=== PATIENT | female | born 1980 | race African-American/Black ===

== ENCOUNTER 2017-06-17 17:41 | Emergency (ER) | payer SELFPAY ==
[~2017-06-17] VITALS: Ht 170.2 cm; Wt 70.3 kg
[~2017-06-17 17:41] MED LIST: ACET500C4 PO; CALC500T30 PO; LEVO25TA55 PO
[2017-06-17 18:55] VITALS: BP 113/61
[2017-06-17] MEDS: SIMETHICONE 80 MG TAB.CHEW PO STA ×3 (19:05→19:25)
--- NOTE | 2017-06-17 19:13 | PHYS DOC ---
Past Medical History Past Medical History: Hypotension Additional Past Medical Histor: thyroid mass Past Surgical History: Other Additional Past Surgical Histo: thyroid/thyroid mass removed Alcohol Use: None Drug Use: None Adult General Chief Complaint Chief Complaint: OTHER COMPLAINTS HPI HPI Patient is a 37 year old female with history of hypertension who presents today complaining of abdominal pain and dysuria. Patient states she's had moderate left lower quadrant abdominal pain that began this morning at 12 AM. She states she went to [facility] at 5 AM by ambulance. She states she was not seen until 1 PM today. She states they did testing which showed she has gas in her stomach as well as urinary tract infection. She states she was discharged with Nitrofurantoin. Patient denies any nausea vomiting. Denies any fever. Denies any chance she is . She is tearful asking for pain relief. Review of Systems Review of Systems Constitutional: Denies fever or chills [] Eyes: Denies change in visual acuity, redness, or eye pain [] HENT: Denies nasal congestion or sore throat [] Respiratory: Denies cough or shortness of breath [] Cardiovascular: No additional information not addressed in HPI [] GI: Left lower quadrant abdominal pain, denies nausea, vomiting, bloody stools or diarrhea [] :dysuria denies hematuria [] Musculoskeletal: Denies back pain or joint pain [] Integument: Denies rash or skin lesions [] Neurologic: Denies headache, focal weakness or sensory changes [] Current Medications Current Medications Current Medications Medications (Trade) Dose Ordered Sig/Sarah Start Time Stop Time Status Last Admin Dose Admin Ceftriaxone Sodium (Rocephin Im) 1 gm 1X ONCE 06/17/17 19:15 06/17/17 19:16 Lidocaine HCl (Xylocaine-Mpf 1% Vial) 2 ml 1X ONCE 06/17/17 19:15 06/17/17 19:16 Magnesium Citrate (Citroma) 296 ml 1X ONCE 06/17/17 19:15 06/17/17 19:16 Simethicone (Gas-X) 80 mg 1X STAT 06/17/17 19:05 06/17/17 19:06 DC Allergies Allergies Allergies Coded Allergies Type Severity Reaction Last Updated Verified acetaminophen Allergy Intermediate Itching 04/07/14 Yes hydrocodone Allergy Intermediate Itching 04/07/14 Yes latex Allergy Intermediate itching 11/02/14 No morphine Allergy Intermediate "Makes me jittery and feel short of breath." Yes oxycodone Allergy Intermediate 04/07/14 Yes Physical Exam Physical Exam Constitutional: Well developed, well nourished, no acute distress, non-toxic appearance. [] HENT: Normocephalic, atraumatic, bilateral external ears normal, oropharynx moist, no oral exudates, nose normal. [] Eyes: PERRLA, EOMI, conjunctiva normal, no discharge. [] Neck: Normal range of motion, no tenderness, supple, no stridor. [] Cardiovascular:Heart rate regular rhythm, no murmur [] Lungs & Thorax: Bilateral breath sounds clear to auscultation [] Abdomen: Bowel sounds normal, soft, no tenderness, no masses, no pulsatile masses. [] Skin: Warm, dry, no erythema, no rash. [] Back: No tenderness, no CVA tenderness. [] Extremities: No tenderness, no cyanosis, no clubbing, ROM intact, no edema. [] Neurologic: Alert and oriented X 3, normal motor function, normal sensory function, no focal deficits noted. [] Psychologic: Affect normal, judgement normal, mood normal. [] Current Patient Data Vital Signs Vital Signs Date Time Temp Pulse Resp B/P (MAP) Pulse Ox O2 Delivery O2 Flow Rate FiO2 06/17/17 18:55 98.5 56 16 100 Room Air 98.5 EKG EKG [] Radiology/Procedures Radiology/Procedures [] Course & Med Decision Making Course & Med Decision Making Pertinent Labs and Imaging studies reviewed. (See chart for details) This is a 37-year-old female patient presenting to the ED today with left lower quadrant abdominal pain and dysuria. She has been seen at [facility] and was discharged at 1 PM today with nitrofurantoin for UTI. She is back in the ED tearful and asking for some pain relief. I talked with patient at length. She states her test at showed she has a UTI and gas in her stomach. She has not been able to fill her prescriptions because of her pain. She is requesting something for pain and she will go to get her paycheck from her boss tomorrow morning, buy the prescription medicines she was given at . She is also requesting something for home use. Talked to this patient about possibility of constipation especially if she had gas in her stomach. Gave the same citrate and simethicone in the ED. She was given a shot of fentanyl. She was also given a shot of Rocephin 1 g. She was discharged with Ultram for pain. Follow-up with her own doctor on Tuesday. Lucio Disclaimer Leslyeon Disclaimer This electronic medical record was generated, in whole or in part, using a voice recognition dictation system. Departure Departure Impression: Primary Impression: Uncontrolled pain Additional Impression: Abdominal pain Disposition: HOME, SELF-CARE Condition: STABLE Referrals: VERO BUCHANAN (PCP) follow up on Tuesday Patient Instructions: Abdominal Pain Additional Instructions: You were seen in the ED with complaints of abdominal pain, you were diagnosed with the urinary tract infection at and gas in your stomach. Please ensure you get prescription for antibiotics and take them as prescribed. Take over-the- counter gas ex. Sometimes gas in the stomach could be a sign of constipation. Ensure you push fluids, increase your dietary fiber intake, and take MiraLAX daily. Follow-up with your doctor on Tuesday. Scripts Promethazine Hcl (PROMETHAZINE HCL) 25 Mg Tablet 1 TAB PO PRN Q6HRS, #20 TAB Prov: ZAIN ROPER APRN 06/17/17 Tramadol Hcl (ULTRAM) 50 Mg Tablet 1 TAB PO Q6HRS, #30 TAB Prov: ZAIN ROPER APRN 06/17/17 Problem Qualifiers Additional Impression: Abdominal pain Abdominal location: left upper quadrant Qualified Codes: R10.12 - Left upper quadrant pain ZAIN ROPER APRN Jun 17, 2017 19:13
[2017-06-17] MEDS ORDERED: fentaNYL PF VIAL 100 MCG/2 ML VIAL IM ONE (19:15)
[2017-06-17] MEDS ORDERED: MAGNESIUM CITRATE 296 ML SOLUTION. PO ONE (19:15)
[2017-06-17] MEDS ORDERED: cefTRIAXone IM 1 GM VIAL IM ONE (19:15)
[2017-06-17] MEDS ORDERED: LIDOCAINE 1% PF 2 ML VIAL. INJ ONE (19:15)
[2017-06-17] MEDS ORDERED: TRAM-48 PO (19:22)
[2017-06-17] MEDS ORDERED: PROM25TA10 PO (19:22)
[2017-06-17] MEDS ORDERED: ONDANSETRON ODT 4 MG TAB.RAPDIS. ONE (19:34)
[2017-06-17] MEDS ORDERED: ONDANSETRON ODT 4 MG TAB.RAPDIS. PO ONE (19:45)
== END 2017-06-17 19:39 | disposition home or self-care (01) ==
LOC: ER 17:41
DX: R10.12 Left upper quadrant pain (principal); R10.32 Left lower quadrant pain; R30.0 Dysuria; I95.9 Hypotension, unspecified; I10 Essential (primary) hypertension; Z88.5 Allergy status to narcotic agent; Z88.6 Allergy status to analgesic agent; Z91.040 Latex allergy status
CPT/HCPCS: 96372; 99284; J0696; J3010; Q0162

== ENCOUNTER 2017-10-27 07:00 | Emergency (ER) | payer SELFPAY ==
[2017-10-27] MEDS: ACETAMINOPHEN 500 MG TABLET PO ×2 (07:42)
[2017-10-27] MEDS: IBUPROFEN 400 MG TABLET. PO ×2 (07:43)
[2017-10-27 08:00] LABS: INFLUENZA A PATIENT NEGATIVE (NEGATIVE)
[2017-10-27 08:01] LABS: INFLUENZA B PATIENT POSITIVE (NEGATIVE); OBC FLU VALID
== END 2017-10-27 08:18 | disposition home or self-care (01) ==
LOC: ER 07:00
DX: J10.1 Influenza due to other identified influenza virus with other respiratory manifestations (principal); J40 Bronchitis, not specified as acute or chronic; M79.1 Myalgia; E03.9 Hypothyroidism, unspecified; F17.210 Nicotine dependence, cigarettes, uncomplicated; Z88.5 Allergy status to narcotic agent; Z91.040 Latex allergy status
CPT/HCPCS: 71046; 87804; 87804-59; 99285-25

== ENCOUNTER 2019-03-30 11:51 | Emergency (ER) | payer SELFPAY ==
[~2019-03-30] VITALS: Ht 170.2 cm; Wt 69.4 kg
[~2019-03-30 11:51] MED LIST changes: +ACET325T9 PO; +ALBU2.5V8 INH; +NAPR-683 PO; +OSEL75CA PO; +PROM25TA10 PO; +TRAM-48 PO
[2019-03-30 12:05] VITALS: BP 101/65
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
[2019-03-30] MEDS ORDERED: traMADol 50 MG TABLET PO ONE (12:30)
--- NOTE | 2019-03-30 13:07 | RAD ---
CLAVICLE RIGHT, SHOULDER 2+V RIGHT History: Right shoulder pain after injury. Comparison: None. Findings: 2 views of the right clavicle and 3 views of the right shoulder. Normal alignment of the glenohumeral and acromioclavicular joints. Normal limit of the clavicle. No fracture. Postop changes lower neck. Impression: 1. No acute osseous abnormality. Electronically signed by: Piyush Mccormick DO (03/30/2019 1:04 PM) [facility]
--- NOTE | 2019-03-30 13:07 | RAD ---
CLAVICLE RIGHT, SHOULDER 2+V RIGHT History: Right shoulder pain after injury. Comparison: None. Findings: 2 views of the right clavicle and 3 views of the right shoulder. Normal alignment of the glenohumeral and acromioclavicular joints. Normal limit of the clavicle. No fracture. Postop changes lower neck. Impression: 1. No acute osseous abnormality. Electronically signed by: Piyush Mccormick DO (03/30/2019 1:04 PM) [facility]
[2019-03-30] MEDS ORDERED: IBUP-1007 PO (13:42)
== END 2019-03-30 13:49 | disposition home or self-care (01) ==
LOC: ER 11:51
DX: S40.011A Contusion of right shoulder, initial encounter (principal); E03.9 Hypothyroidism, unspecified; Z98.890 Other specified postprocedural states; Z88.5 Allergy status to narcotic agent; Z91.040 Latex allergy status; Y04.8XXA Assault by other bodily force, initial encounter; Y93.89 Activity, other specified; Y92.89 Other specified places as the place of occurrence of the external cause; Y99.8 Other external cause status
CPT/HCPCS: 73000; 73030; 99284

== ENCOUNTER 2021-01-10 22:02 | Emergency (ER) | payer SELFPAY ==
[~2021-01-10] VITALS: Ht 170.2 cm; Wt 70.0 kg
[~2021-01-10 22:02] MED LIST changes: +IBUP-1007 PO
[2021-01-10 22:26] VITALS: BP 113/73
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
--- NOTE | 2021-01-11 00:09 | RAD ---
INDICATION: Reason: FALL TO BACKSIDE, TAILBONE PAIN / Spl. Instructions: / History: COMPARISON: None. IMPRESSION: Sacrum and coccyx: 3 views obtained. Subtle lucency at the distal aspect of the sacrum. Could be seco ndary to sacral segment but if there is significant persistent point tenderness a nondisplaced fractu re is not excluded. No evidence of displaced fracture. Electronically signed by: Bubba Garcia MD (01/11/2021 12:07 AM) [id number]
== END 2021-01-11 00:40 | disposition home or self-care (01) ==
LOC: ER 22:02
DX: S30.0XXA Contusion of lower back and pelvis, initial encounter (principal); E03.9 Hypothyroidism, unspecified; F17.210 Nicotine dependence, cigarettes, uncomplicated; Z88.5 Allergy status to narcotic agent; Z91.040 Latex allergy status; W18.39XA Other fall on same level, initial encounter; Y93.89 Activity, other specified; Y92.89 Other specified places as the place of occurrence of the external cause; Y99.8 Other external cause status
CPT/HCPCS: 72220; 81025; 99283